=== PATIENT | female | born 1950 | race Caucasian/White ===

== ENCOUNTER → 2017-10-11 | Outpatient (CLI) | payer OTHER | LOC: FIMAGING 15:44 | PROVIDERS: ATTEND Family Medicine | DX: Z12.31 Encounter for screening mammogram for malignant neoplasm of breast (principal); Z85.3 Personal history of malignant neoplasm of breast ==

== ENCOUNTER → 2018-06-25 | Outpatient (CLI) | payer OTHER, BC | LOC: FIMAGING 13:57 | PROVIDERS: ATTEND Radiology Diagnostic Radiology | DX: I83.813 Varicose veins of bilateral lower extremities with pain (principal); I87.2 Venous insufficiency (chronic) (peripheral) ==

== ENCOUNTER 2018-11-06 07:54 | Day surgery (SDC) | payer OTHER, BC ==
[2018-11-06] MEDS ORDERED: GLUCAGON HCL 1 MG VIAL IVP PRN (08:08)
[2018-11-06] MEDS ORDERED: ALTEPLASE 2 MG VIAL IVP PRN (08:08)
[2018-11-06] MEDS ORDERED: ONDANSETRON 4 MG/2 ML VIAL IVP ONE (08:08)
[2018-11-06] MEDS ORDERED: MIDAZOLAM 2 MG/2 ML VIAL IVP PRN (08:08)
[2018-11-06] MEDS ORDERED: ceFAZolin 2 GM/DEXTROSE 100 ML IV ONE ×2 (08:08→08:15)
[2018-11-06] MEDS ORDERED: PROTAMINE SULFATE 50 MG/5 ML VIAL IVP PRN (08:08)
[2018-11-06] MEDS ORDERED: NALOXONE HCL 0.4 MG/ML INJ IVP PRN (08:08)
[2018-11-06] MEDS ORDERED: NS 1,000 ML IV ONE (08:08)
[2018-11-06] MEDS ORDERED: MEPERIDINE 25 MG/ML SYR IVP PRN (08:08)
[2018-11-06] MEDS ORDERED: FLUMAZENIL 0.5 MG/5 ML MDV IVP PRN (08:08)
[2018-11-06] MEDS ORDERED: fentaNYL 100 MCG/2 ML INJ IVP PRN (08:08)
[2018-11-06] MEDS ORDERED: HEPARIN 10,000 UNIT/10 ML MDV (1,000 UNIT/ML) IVP PRN (08:08)
[2018-11-06] MEDS ORDERED: SODIUM TETRADECYL SULFATE 3% 2 ML VIAL IV ONE (08:44)
[2018-11-06] MEDS ORDERED: LIDO/EPI 1% **for epidural** 30 ML SDV ONE (08:44)
--- NOTE | 2018-11-06 09:01 | PDPROPOC ---
Sedation Plan of Care Sedation Plan of Care: vital signs stable, mental status noted, patient educated of risks, benefits, alternatives, patient can tolerate sedation ASA Classification: ASA 2 Planned drugs: fentanyl, midazolam Mallampati Score: Class 1 Mallampati Reference Image: Patient passed 3-3-2 rule?: No
--- NOTE | 2018-11-06 09:01 | PDGENHP ---
History & Physical Chief Complaint: BILATERAL VARICOSE VEIN History of Present Illness: PAIN AND SWELLING. Pertinent Past, Social, Family History: NON SMOKER Relevant Physical Exam: MILD AMOUNT OF VARICOSE VEINS MAPPED Cardiorespiratory Assessment: RRR, CTA
[2018-11-06] MEDS ORDERED: IBUPROFEN 200 MG TAB PO ONE (10:42)
[2018-11-06] MEDS ORDERED: ONDANSETRON DISINTEGRATING 4 MG TAB PO PRN (10:42)
[2018-11-06] MEDS ORDERED: ONDANSETRON 4 MG/2 ML VIAL IVP PRN (10:42)
[2018-11-06] MEDS ORDERED: NS 1,000 ML IV SCH (10:45)
--- NOTE | 2018-11-06 10:47 | PDRADPN ---
Radiology Procedure Note Date of Procedure: 11/06/18 Radiologist: Inessa Ahumada Anesthesia: IV Sedation Pre-op Diagnosis: VARICOSE VEINS Post-op Diagnosis: SAME Indication: PAIN AND SWELLING Procedure: LASER GSV, PHLEBECTOMY, SCLEROTHERAPY Finding(s): SEE REPORT Inf/Abcess present in the surg proc area at time of surgery?: No
[2018-11-06 13:33] VITALS: BP 109/73
== END 2018-11-06 13:40 | disposition home or self-care (01) ==
LOC: FIMAGING 07:54
PROVIDERS: ATTEND Radiology Diagnostic Radiology
DX: I83.811 Varicose veins of right lower extremity with pain (principal)
CPT/HCPCS: J0690; J2250; J2310; J3010

== ENCOUNTER 2018-11-10 07:48 | Day surgery (SDC) | payer OTHER, BC ==
[2018-11-10] MEDS ORDERED: FLUMAZENIL 0.5 MG/5 ML MDV IVP PRN (08:08)
[2018-11-10] MEDS ORDERED: MIDAZOLAM 2 MG/2 ML VIAL IVP PRN (08:08)
[2018-11-10] MEDS ORDERED: MEPERIDINE 25 MG/ML SYR IVP PRN (08:08)
[2018-11-10] MEDS ORDERED: NS 1,000 ML IV ONE (08:08)
[2018-11-10] MEDS ORDERED: PROTAMINE SULFATE 50 MG/5 ML VIAL IVP PRN (08:08)
[2018-11-10] MEDS ORDERED: HEPARIN 10,000 UNIT/10 ML MDV (1,000 UNIT/ML) IVP PRN (08:08)
[2018-11-10] MEDS ORDERED: fentaNYL 100 MCG/2 ML INJ IVP PRN (08:08)
[2018-11-10] MEDS ORDERED: ALTEPLASE 2 MG VIAL IVP PRN (08:08)
[2018-11-10] MEDS ORDERED: ceFAZolin 2 GM/DEXTROSE 100 ML IV ONE (08:08)
[2018-11-10] MEDS ORDERED: GLUCAGON HCL 1 MG VIAL IVP PRN (08:08)
[2018-11-10] MEDS ORDERED: NALOXONE HCL 0.4 MG/ML INJ IVP PRN (08:08)
[2018-11-10] MEDS ORDERED: ONDANSETRON 4 MG/2 ML VIAL IVP ONE (08:08)
[2018-11-10] MEDS ORDERED: LIDO/EPI 1% **for epidural** 30 ML SDV ONE (08:11)
[2018-11-10] MEDS ORDERED: SODIUM TETRADECYL SULFATE 3% 2 ML VIAL IV ONE (08:11)
--- NOTE | 2018-11-10 08:24 | PDPROPOC ---
Sedation Plan of Care Sedation Plan of Care: vital signs stable, mental status noted, patient educated of risks, benefits, alternatives, patient can tolerate sedation ASA Classification: ASA 2 Planned drugs: fentanyl, midazolam Mallampati Score: Class 2 Mallampati Reference Image: Patient passed 3-3-2 rule?: Yes
--- NOTE | 2018-11-10 08:25 | PDGENHP ---
History & Physical Chief Complaint: bilateral varicose veins History of Present Illness: s/p treatment for rt side a week ago. now here for LT treatment. L>R varicose veins. Pertinent Past, Social, Family History: non smoker. Relevant Physical Exam: large ropey varicose veins mapped out. Cardiorespiratory Assessment: cta. rrr
[2018-11-10] MEDS ORDERED: fentaNYL 100 MCG/2 ML INJ ONE (10:15)
[2018-11-10] MEDS ORDERED: MIDAZOLAM 2 MG/2 ML VIAL ONE (10:15)
--- NOTE | 2018-11-10 10:50 | PDRADPN ---
Radiology Procedure Note Date of Procedure: 11/10/18 Radiologist: Inessa Ahumada Anesthesia: IV Sedation Pre-op Diagnosis: LLE VARICOSE VEINS Post-op Diagnosis: SAME Indication: PAIN AND SWELLING Procedure: LASER X 2, PHLEBECTOMY, SCLEROTHERAPY Finding(s): 13 STAB PHLEBECTOMY DONE Inf/Abcess present in the surg proc area at time of surgery?: No
[2018-11-10] MEDS ORDERED: ONDANSETRON 4 MG/2 ML VIAL IVP PRN (10:53)
[2018-11-10] MEDS ORDERED: IBUPROFEN 200 MG TAB PO ONE (10:53)
[2018-11-10] MEDS ORDERED: ONDANSETRON DISINTEGRATING 4 MG TAB PO PRN (10:53)
[2018-11-10] MEDS ORDERED: NS 1,000 ML IV SCH (11:00)
[2018-11-10 15:57] VITALS: BP 114/70
== END 2018-11-10 15:30 | disposition home or self-care (01) ==
LOC: FIMAGING 07:48
PROVIDERS: ATTEND Radiology Diagnostic Radiology
DX: I83.812 Varicose veins of left lower extremity with pain (principal)
CPT/HCPCS: J0690; J2250; J2310; J3010

== ENCOUNTER → 2018-11-26 | Outpatient (CLI) | payer OTHER | LOC: FIMAGING 16:06 | PROVIDERS: ATTEND Radiology Diagnostic Radiology | DX: I83.93 Asymptomatic varicose veins of bilateral lower extremities (principal) ==

== ENCOUNTER → 2018-12-15 | Outpatient (CLI) | payer OTHER | LOC: FIMAGING 11:51 | PROVIDERS: ATTEND Family Medicine | DX: Z12.31 Encounter for screening mammogram for malignant neoplasm of breast (principal); Z80.3 Family history of malignant neoplasm of breast ==